=== PATIENT | male | born 1985 | race African-American/Black ===

== ENCOUNTER 2022-06-05 10:33 | Emergency (ER) | payer SELFPAY ==
[~2022-06-05] VITALS: Ht 170.2 cm; Wt 67.0 kg
[2022-06-05 10:40] VITALS: BP 147/101
[2022-06-05] MEDS ORDERED: IBUPROFEN 400MG TABLET PO ONE (11:15)
[2022-06-05] MEDS ORDERED: TOPUD PO (11:18)
== END 2022-06-05 11:52 | disposition home or self-care (01) ==
LOC: ER 10:45
DX: S43.084A Other dislocation of right shoulder joint, initial encounter (principal); S14.3XXA Injury of brachial plexus, initial encounter; X58.XXXA Exposure to other specified factors, initial encounter; Y93.89 Activity, other specified; Y92.9 Unspecified place or not applicable
CPT/HCPCS: 23650; 73030; 99284

== ENCOUNTER 2022-09-10 17:29 | Emergency (ER) | payer SELFPAY ==
[~2022-09-10] VITALS: Ht 167.6 cm; Wt 60.0 kg
[~2022-09-10 17:29] MED LIST: PANT40TA51 MT; SIME125C PO; TOPUD PO
[2022-09-10 17:57] VITALS: BP 135/99
[2022-09-10] MEDS ORDERED: SODIUM CHLORIDE 0.9% 1,000 ML IV ONE (21:30)
== END 2022-09-10 18:58 | disposition left against medical advice (07) ==
LOC: ER 17:29
DX: Z53.21 Procedure and treatment not carried out due to patient leaving prior to being seen by health care provider (principal)
CPT/HCPCS: J7030

== ENCOUNTER 2022-09-11 07:24 | Inpatient (IN) | payer MEDICAID, OTHER ==
[~2022-09-11] VITALS: Ht 170.2 cm; Wt 60.3 kg
[2022-09-11] MEDS ORDERED: KETOROLAC 30MG/ML VIAL IV STA (08:14)
[2022-09-11] MEDS ORDERED: MAGNESIUM/ALUMINUM HYDROXIDE/SIMETHICONE 30ML UDC PO STA (08:14)
[2022-09-11] MEDS ORDERED: ONDANSETRON HCL 4MG/2ML INJ IV STA (08:14)
[2022-09-11] MEDS ORDERED: VISCOUS LIDOCAINE 2% 15 ML UDC PO STA (08:14)
[2022-09-11] MEDS ORDERED: FAMOTIDINE 20MG/2ML VIAL IV STA (08:14)
[2022-09-11] MEDS ORDERED: SODIUM CHLORIDE 0.9% 1,000 ML IV ONE (08:15)
[2022-09-11 08:45] LABS: HEMATOCRIT. 42.4 % (42.0-52.0); MEAN CORPUSCULAR HEMOGLOBIN 28.8 pg (28.0-32.0); MEAN CORPUSCULAR VOLUME 87.2 fL (80.0-94.0); MEAN PLATELET VOLUME 7.5 fl (7.4-10.4); PLATELET 336 x1000/uL (130-400); RED BLOOD CELL COUNT 4.86 mill/uL (4.7-6.1); RED CELL DISTRIBUTION WIDTH 22.5 % (11.6-14.6)
[2022-09-11 08:56] LABS: PARTIAL THROMBOPLASTIN TIME 22.9 sec (23.4-31.0); PROTHROMBIN TIME 10.9 sec (9.6-11.0)
[2022-09-11 08:59] LABS: CHLORIDE 94 mEq/L (98-107)
[2022-09-11] MEDS ORDERED: IOHEXOL-350 100 ML BOTTLE ONE (09:40)
[2022-09-11 10:18] LABS: PLATELET ESTIMATE NORMAL
[2022-09-11] MEDS ORDERED: POTASSIUM CHLORIDE 20MEQ TABLET SR PO NR (16:00)
[2022-09-11] MEDS: SUCRALFATE 1 G/10 ML UDC PO SCH ×2 (16:40→21:00)
[2022-09-11 17:47] VITALS: BP 145/98
[2022-09-11 20:00] VITALS: BP 128/76
[2022-09-11] MEDS ORDERED: HYDROCODONE/ACETAMINOPHEN 5/325MG TABLET PO PRN (21:00)
[2022-09-11] MEDS ORDERED: MAGNESIUM/ALUMINUM HYDROXIDE/SIMETHICONE 30ML UDC PO PRN (21:00)
[2022-09-11] MEDS ORDERED: ACETAMINOPHEN 325MG TABLET PO PRN (21:00)
[2022-09-11] MEDS ORDERED: CLONIDINE 0.1MG TABLET PO PRN (21:00)
[2022-09-11] MEDS: SODIUM CHLORIDE 0.9% 1,000 ML IV SCH (21:00)
[2022-09-11] MEDS ORDERED: NALOXONE HCL 0.4MG/ML VIAL IV PRN (21:15)
[2022-09-11 22:00] VITALS: BP 132/75
[2022-09-11] MEDS: CHLORDIAZEPOXIDE 25MG CAPSULE PO SCH (22:00)
[2022-09-11] MEDS ORDERED: ENOXAPARIN 40MG/0.4ML SYR SUBCUT SCH (22:00)
[2022-09-12] VITALS (13 sets, daily range): BP systolic 104–128; BP diastolic 57–84
[2022-09-12] MEDS: SODIUM CHLORIDE 0.9% 1,000 ML IV SCH ×3 (05:27→22:39)
[2022-09-12] MEDS: CHLORDIAZEPOXIDE 25MG CAPSULE PO SCH ×3 (05:27→21:54)
[2022-09-12 07:50] LABS: HEMATOCRIT. 42.4 % (42.0-52.0); HEMOGLOBIN. 13.9 g/dL (14.0-18.0); MEAN CORPUSCULAR VOLUME 88.6 fL (80.0-94.0); PLATELET 277 x1000/uL (130-400); RED BLOOD CELL COUNT 4.79 mill/uL (4.7-6.1); RED CELL DISTRIBUTION WIDTH 22.9 % (11.6-14.6)
[2022-09-12] MEDS: MULTIVITAMINS,THER W-MINERALS TABLET PO SCH (08:31)
[2022-09-12] MEDS: SUCRALFATE 1 G/10 ML UDC PO SCH ×4 (08:31→21:53)
[2022-09-12] MEDS: THIAMINE HCL 100MG TABLET PO SCH (08:31)
[2022-09-12] MEDS: FOLIC ACID 1MG TABLET PO SCH (08:31)
[2022-09-12] MEDS ORDERED: FAMOTIDINE 20MG/2ML VIAL IV SCH (09:00)
[2022-09-12 11:06] LABS: PLATELET ESTIMATE NORMAL
[2022-09-12] MEDS ORDERED: POTASSIUM CHLORIDE 20MEQ/PACKET PO NR ×2 (11:15→13:00)
[2022-09-12 15:15] LABS: BG HCO3 ACT 37.4 mmol/L (22.0-26.0); BG PCO2 49.1 mmHg (35.0-45.0); BG PO2 75.6 mmHg (75.0-100.0); BG SAMPLE SITE RIGHT RADIAL; BG VENT MODE ROOM AIR
[2022-09-12 15:16] LABS: BG BASE EXCESS 12.4 mmol/L (-2.0-2.0); BG CARBOXYHEMOGLOBIN 1.1 % (0.5-1.5); BG DEOXYHEMOGLOBIN 4.7 % (0.0-5.0); BG METHEMOGLOBIN 0.2 % (0.0-1.5); BG OXYGEN SATURATION 95.2 % (92.0-98.5)
[2022-09-12 16:46] LABS: CLARITY URINE CLOUDY (CLEAR); COLOR URINE DARK YELLOW (YELLOW); KETONES URINE NEGATIVE (NEGATIVE); LEUKOCYTE ESTERASE URINE TRACE (NEGATIVE); NITRITE URINE NEGATIVE (NEGATIVE); OCCULT BLOOD URINE 1+ (NEGATIVE); PROTEIN URINE 3+ (NEGATIVE); SPECIFIC GRAVITY URINE 1.048 (1.005-1.030)
[2022-09-12 16:59] LABS: *AMPHETAMINES SCREEN URINE NEGATIVE (NEGATIVE); *BARBITURATES SCREEN URINE NEGATIVE (NEGATIVE); *BENZODIAZEPINES SCREEN URINE NEGATIVE (NEGATIVE); *COCAINE SCREEN URINE NEGATIVE (NEGATIVE); CANNABINOID URINE SCREEN NEGATIVE (NEGATIVE); METHADONE URINE SCREEN NEGATIVE (NEGATIVE); OPIATES URINE SCREEN NEGATIVE (NEGATIVE); PHENCYCLIDINE URINE SCREEN NEGATIVE (NEGATIVE)
[2022-09-12] MEDS ORDERED: ENOXAPARIN 30MG/0.3ML SYR SUBCUT SCH (18:00)
[2022-09-12] MEDS ORDERED: METOPROLOL TARTRATE 5MG/5ML VIAL IV NR (18:45)
[2022-09-12] MEDS ORDERED: DILTIAZEM HCL 5MG/ML 5ML VIAL IV NR (18:45)
[2022-09-12] MEDS: DILTIAZEM HCL 30MG TABLET PO SCH (21:53)
[2022-09-12 22:40] LABS: PHOSPHORUS 5.8 mg/dL (2.5-4.9)
[2022-09-12 23:00] LABS: HEPATITIS B SURFACE ANTIGEN NEGATIVE
[2022-09-13] VITALS (59 sets, daily range): BP systolic 72–150; BP diastolic 8–137
[2022-09-13] MEDS: ONDANSETRON HCL 4MG/2ML INJ IV PRN ×2 (00:25→14:46)
[2022-09-13] MEDS: SODIUM CHLORIDE 0.9% 1,000 ML IV SCH ×3 (06:00→21:00)
[2022-09-13] MEDS: DILTIAZEM HCL 30MG TABLET PO SCH (06:23)
[2022-09-13] MEDS: CHLORDIAZEPOXIDE 25MG CAPSULE PO SCH ×3 (06:23→21:57)
[2022-09-13] MEDS: SUCRALFATE 1 G/10 ML UDC PO SCH ×4 (06:24→21:00)
[2022-09-13] MEDS: FOLIC ACID 1MG TABLET PO SCH (08:49)
[2022-09-13] MEDS: THIAMINE HCL 100MG TABLET PO SCH (08:49)
[2022-09-13] MEDS: MULTIVITAMINS,THER W-MINERALS TABLET PO SCH (08:49)
[2022-09-13] MEDS ORDERED: FAMOTIDINE 20MG TABLET PO SCH (09:00)
[2022-09-13 11:14] LABS: PHOSPHORUS 6.2 mg/dL (2.5-4.9)
[2022-09-13] MEDS ORDERED: POTASSIUM CHLORIDE 20MEQ/PACKET PO NR ×2 (11:15→12:30)
[2022-09-13 11:36] LABS: BASOPHILS % 0.1 % (0.0-2.0); HEMATOCRIT. 30.3 % (42.0-52.0); HEMOGLOBIN. 9.1 g/dL (14.0-18.0); LYMPHOCYTES % 11.4 % (20.0-50.0); MEAN CORPUSCULAR HEMOGLOBIN 28.5 pg (28.0-32.0); MEAN CORPUSCULAR VOLUME 94.6 fL (80.0-94.0); MEAN PLATELET VOLUME 8.8 fl (7.4-10.4); MONOCYTES % 14.4 % (2.0-8.0); NEUTROPHILS % 74.1 % (40.0-76.0); PLATELET 253 x1000/uL (130-400); RED CELL DISTRIBUTION WIDTH 22.6 % (11.6-14.6)
[2022-09-13] MEDS ORDERED: NOREPINEPHRINE 32 MG in DEXT 5% WATER 218 ML IV PRN (12:00)
[2022-09-13] MEDS ORDERED: POTASSIUM CHLORIDE INJ 40 MEQ in DEXT 5% WATER 250 ML IV ONE ×4 (13:00)
[2022-09-13] MEDS: KCL 20MEQ/100ML X 2 FOR TOTAL KCL 40MEQ/200ML IV SCH ×2 (14:46→18:17)
[2022-09-13] MEDS ORDERED: IOHEXOL-300 100 ML BOTTLE ONE ×2 (15:48→16:25)
[2022-09-13] MEDS ORDERED: LIDOCAINE HCL/PF 1% 10 MG/ML 5ML VIAL ONE (15:48)
[2022-09-13 16:38] LABS: HEMATOCRIT 27.2 % (42.0-52.0); HEMOGLOBIN 8.7 g/dL (14.0-18.0)
[2022-09-13] MEDS ORDERED: FENTANYL CITRATE/PF 50MCG/ML 2ML VIAL ONE (16:48)
[2022-09-13] MEDS ORDERED: FENTANYL CITRATE/PF 50MCG/ML 2ML VIAL IV NR (16:50)
[2022-09-13] MEDS: PANTOPRAZOLE SODIUM 40 MG/VIAL IV SCH (22:00)
[2022-09-14] VITALS (94 sets, daily range): BP systolic 126–170; BP diastolic 60–98
[2022-09-14] MEDS: CHLORDIAZEPOXIDE 25MG CAPSULE PO SCH ×3 (05:29→20:50)
[2022-09-14] MEDS: SODIUM CHLORIDE 0.9% 1,000 ML IV SCH ×3 (05:29→20:11)
[2022-09-14] MEDS: MORPHINE SULFATE 4 MG/ML CPJ (NOT FOR IM USE) IV PRN ×2 (05:40→21:04)
[2022-09-14 06:19] LABS: HEMOGLOBIN. 9.5 g/dL (14.0-18.0); MEAN CORPUSCULAR HEMOGLOBIN 29.3 pg (28.0-32.0); MEAN CORPUSCULAR VOLUME 86.1 fL (80.0-94.0); MEAN PLATELET VOLUME 8.5 fl (7.4-10.4); PLATELET 238 x1000/uL (130-400); RED BLOOD CELL COUNT 3.26 mill/uL (4.7-6.1); RED CELL DISTRIBUTION WIDTH 19.3 % (11.6-14.6)
[2022-09-14] MEDS: SUCRALFATE 1 G/10 ML UDC PO SCH ×5 (07:50→20:50)
[2022-09-14 07:51] LABS: CHLORIDE 101 mEq/L (98-107)
[2022-09-14 08:02] LABS: CREATINE KINASE 72 IU/L (39-308); PHOSPHORUS 4.5 mg/dL (2.5-4.9)
[2022-09-14] MEDS: THIAMINE HCL 100MG TABLET PO SCH ×2 (08:49→09:00)
[2022-09-14] MEDS: FOLIC ACID 1MG TABLET PO SCH ×2 (08:49→09:00)
[2022-09-14] MEDS: MULTIVITAMINS,THER W-MINERALS TABLET PO SCH ×2 (08:49→09:00)
[2022-09-14] MEDS: PANTOPRAZOLE SODIUM 40 MG/VIAL IV SCH ×2 (08:49→20:50)
[2022-09-14 10:16] LABS: PLATELET ESTIMATE NORMAL
[2022-09-14 10:21] LABS: HEMATOCRIT 27.4 % (42.0-52.0); HEMOGLOBIN 9.3 g/dL (14.0-18.0)
[2022-09-14] MEDS ORDERED: POTASSIUM CHLORIDE INJ 40 MEQ in DEXT 5% WATER 250 ML IV ONE (11:30)
[2022-09-14] MEDS ORDERED: DILTIAZEM HCL 5MG/ML 5ML VIAL IV PRN (13:30)
[2022-09-14] MEDS: KCL 20MEQ/100ML X 2 FOR TOTAL KCL 40MEQ/200ML IV SCH ×2 (13:49→17:06)
[2022-09-14 15:33] LABS: HEMATOCRIT 25.7 % (42.0-52.0); HEMOGLOBIN 8.5 g/dL (14.0-18.0)
[2022-09-15] VITALS (27 sets, daily range): BP systolic 99–150; BP diastolic 60–118
[2022-09-15] MEDS: SODIUM CHLORIDE 0.9% 1,000 ML IV SCH ×3 (02:51→17:23)
[2022-09-15 06:03] LABS: HEMATOCRIT. 25.7 % (42.0-52.0); HEMOGLOBIN. 8.7 g/dL (14.0-18.0); MEAN CORPUSCULAR HEMOGLOBIN 29.4 pg (28.0-32.0); MEAN CORPUSCULAR VOLUME 87.3 fL (80.0-94.0); PLATELET 199 x1000/uL (130-400); RED BLOOD CELL COUNT 2.95 mill/uL (4.7-6.1); RED CELL DISTRIBUTION WIDTH 18.3 % (11.6-14.6)
[2022-09-15 06:19] LABS: CHLORIDE 108 mEq/L (98-107)
[2022-09-15 06:30] LABS: PHOSPHORUS 1.8 mg/dL (2.5-4.9)
[2022-09-15] MEDS: CHLORDIAZEPOXIDE 25MG CAPSULE PO SCH ×3 (07:01→21:35)
[2022-09-15 07:27] LABS: PLATELET ESTIMATE NORMAL
[2022-09-15] MEDS: SUCRALFATE 1 G/10 ML UDC PO SCH ×4 (07:59→21:35)
[2022-09-15] MEDS ORDERED: KCL 20MEQ/100ML PREMIX 100 ML IV SCH (08:00)
[2022-09-15] MEDS: MULTIVITAMINS,THER W-MINERALS TABLET PO SCH (08:00)
[2022-09-15] MEDS: FOLIC ACID 1MG TABLET PO SCH (08:00)
[2022-09-15] MEDS: THIAMINE HCL 100MG TABLET PO SCH (08:00)
[2022-09-15] MEDS: PANTOPRAZOLE SODIUM 40 MG/VIAL IV SCH ×2 (08:00→21:35)
[2022-09-15] MEDS ORDERED: POTASSIUM PHOS,M-BASIC-D-BASIC 15 MMOL in DEXT 5% WATER 245 ML IV NR (09:00)
[2022-09-16] VITALS: BP 129/74
[2022-09-16 04:00] VITALS: BP 132/76
[2022-09-16] MEDS: SODIUM CHLORIDE 0.9% 1,000 ML IV SCH ×2 (04:06→14:00)
[2022-09-16] MEDS: MORPHINE SULFATE 4 MG/ML CPJ (NOT FOR IM USE) IV PRN ×2 (05:00→18:55)
[2022-09-16] MEDS: CHLORDIAZEPOXIDE 25MG CAPSULE PO SCH ×2 (05:22→13:58)
[2022-09-16 06:13] LABS: HEMATOCRIT. 26.7 % (42.0-52.0); HEMOGLOBIN. 8.8 g/dL (14.0-18.0); MEAN CORPUSCULAR HEMOGLOBIN 28.9 pg (28.0-32.0); MEAN CORPUSCULAR VOLUME 87.8 fL (80.0-94.0); MEAN PLATELET VOLUME 8.2 fl (7.4-10.4); PLATELET 247 x1000/uL (130-400); RED BLOOD CELL COUNT 3.04 mill/uL (4.7-6.1); RED CELL DISTRIBUTION WIDTH 17.8 % (11.6-14.6)
[2022-09-16 06:41] LABS: PHOSPHORUS 1.8 mg/dL (2.5-4.9)
[2022-09-16 08:00] VITALS: BP 128/66
[2022-09-16] MEDS: THIAMINE HCL 100MG TABLET PO SCH (10:11)
[2022-09-16] MEDS: SUCRALFATE 1 G/10 ML UDC PO SCH ×3 (10:11→17:40)
[2022-09-16] MEDS: FOLIC ACID 1MG TABLET PO SCH (10:12)
[2022-09-16] MEDS: MULTIVITAMINS,THER W-MINERALS TABLET PO SCH (10:12)
[2022-09-16] MEDS: PANTOPRAZOLE SODIUM 40 MG/VIAL IV SCH (10:12)
[2022-09-16 12:00] VITALS: BP 125/70
[2022-09-16] MEDS ORDERED: POTASSIUM PHOS,M-BASIC-D-BASIC 15 MMOL in DEXT 5% WATER 245 ML IV NR (12:30)
[2022-09-16] MEDS ORDERED: PANT40TA51 MT (13:25)
[2022-09-16] MEDS ORDERED: POTASSIUM CHLORIDE INJ 20 MEQ in SODIUM CHLORIDE 0.9% 1,000 ML IV SCH (14:15)
[2022-09-16] MEDS ORDERED: SODIUM CHL 0.9% + KCL 20MEQ/L 1,000 ML IV SCH (14:30)
[2022-09-16 18:28] VITALS: BP 124/72
[2022-09-16 18:55] VITALS: BP 128/70
[2022-09-16 21:02] LABS: PLATELET ESTIMATE NORMAL
== END 2022-09-16 19:40 | disposition home or self-care (01) | DRG 253 ==
LOC: ER 07:24 → 7EST 11:59 → ENRESERV 12:10 → 5EST 18:43 → CVICU 09-13 10:30 → 7WST 09-15 16:52
PROVIDERS: ADMIT Internal Medicine; ATTEND Internal Medicine
PROC: 05HY33Z Insertion of Infusion Device into Upper Vein, Percutaneous Approach (ICD-10-PCS; principal; 2022-09-13)
PROC: B54MZZA Ultrasonography of Right Upper Extremity Veins, Guidance (ICD-10-PCS; 2022-09-13)
PROC: 04L23DZ Occlusion of Gastric Artery with Intraluminal Device, Percutaneous Approach (ICD-10-PCS; 2022-09-14)
PROC: B31NZZZ Fluoroscopy of Other Upper Arteries (ICD-10-PCS; 2022-09-14)
PROC: 30233N1 Transfusion of Nonautologous Red Blood Cells into Peripheral Vein, Percutaneous Approach (ICD-10-PCS; 2022-09-14)
DX: K92.2 Gastrointestinal hemorrhage, unspecified (principal); R57.8 Other shock; N17.0 Acute kidney failure with tubular necrosis; K85.20 Alcohol induced acute pancreatitis without necrosis or infection; K66.1 Hemoperitoneum; S43.004A Unspecified dislocation of right shoulder joint, initial encounter; D64.9 Anemia, unspecified; K86.3 Pseudocyst of pancreas; S36.420A Contusion of duodenum, initial encounter; E87.20 Acidosis, unspecified; F17.210 Nicotine dependence, cigarettes, uncomplicated; R73.9 Hyperglycemia, unspecified; N14.11 Contrast-induced nephropathy; E87.6 Hypokalemia; F10.10 Alcohol abuse, uncomplicated; Y90.9 Presence of alcohol in blood, level not specified; N20.0 Calculus of kidney; I48.91 Unspecified atrial fibrillation; T50.8X5A Adverse effect of diagnostic agents, initial encounter; X58.XXXA Exposure to other specified factors, initial encounter; Y93.89 Activity, other specified; Z71.6 Tobacco abuse counseling; Y92.89 Other specified places as the place of occurrence of the external cause; Z79.899 Other long term (current) drug therapy; Z79.1 Long term (current) use of non-steroidal anti-inflammatories (NSAID); Z87.11 Personal history of peptic ulcer disease; Z71.41 Alcohol abuse counseling and surveillance of alcoholic; Z82.49 Family history of ischemic heart disease and other diseases of the circulatory system; Y99.8 Other external cause status; Y92.9 Unspecified place or not applicable; Z87.442 Personal history of urinary calculi
CPT/HCPCS: 36415; 36573; 36600; 71045; 74174; 74176; 75774; 75898; 76705; 76770; 80048; 80053; 80061; 80076; 80305; 81003; 82150; 82375; 82550; 82805; 83735; 84100; 84484; 85014; 85018; 85025; 86301; 86705; 86709; 86803; 86850; 86900; 86920; 87340; 93005; 93306; 93970; 99152; 99153; 99285; A6261; C1725; C1730; C1766; C1769; C1887; C9113; J1644; J1650; J1885; J2270; J2405; J3010; J3480; J3490; J7030; J7060; P9016; Q9967; A4315; G0500